=== PATIENT | female | born 1935 | race Caucasian/White ===

== ENCOUNTER 2017-09-22 18:40 | Emergency (ER) | payer MEDICARE, OTHER ==
[~2017-09-22 18:40] MED LIST changes: -ALEN70TA43 PO; -HYDR-4309 PO; -ONDA4TAB PO
--- NOTE | 2017-09-22 18:48 | ER Report ---
History and Physical Time Seen By MD: 18:44 HPI/ROS CHIEF COMPLAINT: Fall, left arm pain HISTORY OF PRESENT ILLNESS: 82-year-old female brought in by EMS. While she was celebrating her birthday. She tripped and fell onto her left arm. She's complaining of severe pain. Midhumerus. She is status post shoulder replacement on the left side. The left upper extremity was placed in a prescription sling by EMS after she received fentanyl 250 g IV. He also has an abrasion to her left fore head. She denies neck pain, or LOC. Her mentation is normal. She denies nausea or vomiting. Patient denies chest pain or shortness of breath. Patient denies syncope. REVIEW OF SYSTEMS: Respiratory: No cough, no dyspnea. Cardiovascular: No chest pain, no palpitations. Gastrointestinal: No vomiting, no abdominal pain. Musculoskeletal: No back pain. Allergies: Coded Allergies: tetracycline (Verified Allergy, Severe, SWELLING OF TONGUE, 09/22/17) Home Meds Active Scripts Ondansetron (ZOFRAN ODT) 4 Mg Tab.rapdis, 4 MG PO every 6 hours, #12 TAB TAKE 1 TABLET BY MOUTH EVERY 12 HOURS Prov:EVE CRUZ Tr DO 09/22/17 Ondansetron (ZOFRAN ODT) 4 Mg Tab.rapdis, 4 MG PO every 6 hours Y for NAUSEA/ VOMITING, #10 TAB TAKE 1 TABLET BY MOUTH EVERY 12 HOURS Prov:EVE CRUZ Tr DO 09/22/17 Hydrocodone Bit/Acetaminophen (NORCO 5-325 TABLET) 1 Each Tablet, 1-2 EACH PO Q4H Y for PAIN, #20 TAB Prov:EVE CRUZ Tr DO 09/22/17 Reported Medications Alendronate Sodium (FOSAMAX) 70 Mg Tablet, 35 MG PO QWK, TAB 09/22/17 Calcium Citrate/Vitamin D3 (CALCIUM CITRATE - VIT D CAPLET) 1 Each Tablet, 1 EACH PO DAILY 11/10/15 Multivitamin (DAILY VITAMIN FORMULA) 1 Each Tablet, 1 EACH PO DAILY 11/10/15 Lactobacillus Combination No.4 (PROBIOTIC) 1 Each Capsule, 1 EACH PO DAILY, CAPSULE 11/10/15 Esomeprazole Magnesium (NEXIUM) 20 Mg Capsule.dr, 1 CAP PO QDAY, CAP 11/10/15 Cyclosporine (RESTASIS) 1 Each Droperette, 1 EACH OP DAILY 11/10/15 Glycopyrrolate (ROBINUL) 1 Mg Tablet, 0.5 MG PO HS 11/10/15 Pot Chloride/Shlomo Phos/Mag (MEDI-LYTE TABLET) 1 Each Tablet, 1 EACH PO DAILY 11/10/15 Furosemide (FUROSEMIDE) 20 Mg Tablet, 1 TAB PO DAILY, TAB 11/10/15 Fluticasone/Salmeterol (ADVAIR HFA 45-21 MCG INHALER) 12 Gm Hfa.aer.ad, 12 GM IH BID 11/10/15 Albuterol/Ipratropium (Combivent) 14.7 Gm Inh, 0 INH PRN, 0 Refills 1-2 PUFFS 02/17/10 Discontinued Scripts Hydrocodone Bit/Acetaminophen (HYDROCODON-ACETAMINOPHEN 5-325) 1 Each Tablet, 1 EACH PO Q4-6H for PAIN, #12 TAB TAKE ONE TABLET BY MOUTH EVERY 4-6 HOURS NEEDED FOR PAIN Prov:BEBETO AMADOR MD 11/10/15 Past Medical/Surgical History Past medical history: Osteoporosis, GERD, dry eye syndrome, COPD/asthma Reviewed Nurses Notes: Yes Old Medical Records Reviewed: Yes Hx Smoking: No Smoking Status: Former Smoker Exposure to Second Hand Smoke?: No Hx Substance Use Disorder: No Hx Alcohol Use: No Constitutional Vital Sign - Last 24 Hours 09/22/17 09/22/17 09/22/17 09/22/17 18:40 18:46 18:51 19:00 Temp 98.1 Pulse ??? 81 Resp 19 B/P (MAP) 158/84 158/84 (108) 173/76 (108) Pulse Ox 94 O2 Delivery Room Air 09/22/17 09/22/17 09/22/17 09/22/17 19:10 19:30 19:40 19:46 Pulse 85 85 Resp 20 12 B/P (MAP) 177/83 (114) O2 Flow Rate 1.0 09/22/17 09/22/17 09/22/17 09/22/17 20:00 20:10 20:10 20:30 Pulse 82 82 Resp 15 15 B/P (MAP) 166/73 (104) 168/84 (112) Pulse Ox 90 90 09/22/17 09/22/17 09/22/17 20:40 21:10 21:30 Pulse 83 92 Resp 9 B/P (MAP) 178/96 (123) 167/77 (107) Pulse Ox 95 89 Physical Exam General Appearance: The patient is alert, has no immediate need for airway protection and no current signs of toxicity. Palpation of the head and neck reveals no tenderness or trauma except there is an abrasion to the left fore head. Patient bones are intact on palpation, aggressive palpation of the cervical spine reveals no tenderness HEENT: Pupils equal and round no injection. TMs normal, facial bones intact on palpation, oropharynx without dental trauma Respiratory: Chest is non tender, lungs are clear to auscultation. No chest wall tenderness Cardiac: regular rate and rhythm Gastrointestinal: Abdomen is soft and non tender, no masses, bowel sounds normal. Musculoskeletal: Neck: Neck is supple and non tender. Extremities have full range of motion and are non tender. The right lower extremity shows a large skin tear held closed by Steri-Strips. There is a dressing over it. There is some surrounding erythema but it does not appear grossly infected. It is 4 weeks out. Per patient history. Skin: No rashes or lesions. DIFFERENTIAL DIAGNOSIS: After history and physical exam differential diagnosis was considered for sprain, strain, fracture, dislocation, contusion. Medical Decision Making EKG/Imaging Imaging X-ray: Two-view left humerus was obtained and angulation. I viewed the images myself on the PACS system. My interpretation of the images is: There is a midshaft nondisplaced.. The radiologist interpretation had no clinically significant variation from this interpretation. ED Course/Re-evaluation Clinical Indication for ER IV: IV Access ED Course Patient was admitted to an examination room by EMS. H&P was done. The differential diagnoses was considered. Patient with a trip and fall. She denies syncope. On clinical examination. She has significant pain in her left humerus. She likely has sustained a fracture with a deformity. EMS and to administer significant fentanyl in the scene to get relief and put her in a sling. Diagnostic x-rays show obvious midshaft fracture, just distal to the shoulder, prosthetic device. Patient's abrasion to her left forehead was cleaned and dressed and antibiotic ointment. I spoke with the family and patient at length. They're requesting admission for pain control. I advised them that insurance will likely cover the admission. They may be left with a large bill. Patient was given Toradol 30 mg in addition to the fentanyl she received earlier. She was also given 2 g of morphine for extended pain relief. Patient will be discharged home on Percocet and Zofran. Patient advised to contact orthopedist in [place] to get her shoulder surgery on Sunday for urgent follow-up. Decision to Disposition Date: September 22, 2017 Decision to Disposition Time: 20:10 Depart Departure Latest Vital Signs Vital Signs Date Time Temp Pulse Resp B/P (MAP) Pulse Ox O2 Delivery O2 Flow Rate FiO2 09/22/17 21:30 167/77 (107) 09/22/17 21:10 92 89 09/22/17 20:40 9 09/22/17 19:46 1.0 09/22/17 18:46 98.1 Room Air Impression: Primary Impression: Fall with injury Additional Impressions: Status post replacement of left shoulder joint Closed left humeral fracture Forehead abrasion Condition: Improved Disposition: HOME OR SELF-CARE Referrals: AGUSTINA ESPINOSA MD (PCP) NADIR FERREIRA MD New Scripts Ondansetron (ZOFRAN ODT) 4 Mg Tab.rapdis 4 MG PO every 6 hours, #12 TAB TAKE 1 TABLET BY MOUTH EVERY 12 HOURS Prov: EVE CRUZ DO 09/22/17 Ondansetron (ZOFRAN ODT) 4 Mg Tab.rapdis 4 MG PO every 6 hours Y for NAUSEA/VOMITING, #10 TAB TAKE 1 TABLET BY MOUTH EVERY 12 HOURS Prov: EVE CRUZ DO 09/22/17 Hydrocodone Bit/Acetaminophen (NORCO 5-325 TABLET) 1 Each Tablet 1-2 EACH PO Q4H Y for PAIN, #20 TAB Prov: EVE CRUZ DO 09/22/17 Patient Instructions: Arm Fracture in Adults (ED) Additional Instructions: Take ibuprofen 2 tablets 3 times a day with food Apply ice to your left upper arm Continue to wear the sling for support monitor the left hand for swelling Follow-up with your orthopedic doctor in 2-4 days or you can go to Dr. Ferreira here in [place] Problem Qualifiers Primary Impression: Fall with injury Encounter type: initial encounter Qualified Codes: W19.XXXA - Unspecified fall, initial encounter Additional Impressions: Closed left humeral fracture Encounter type: initial encounter Humerus Location: shaft Fracture morphology: unspecified fracture morphology Qualified Codes: S42.302A - Unspecified fracture of shaft of humerus, left arm, initial encounter for closed fracture Forehead abrasion Encounter type: initial encounter Qualified Codes: S00.81XA - Abrasion of other part of head, initial encounter EVE CRUZ DO September 22, 2017 18:48
[2017-09-22] MEDS ORDERED: ALEN70TA43 PO (19:48)
--- NOTE | 2017-09-22 20:07 | RADIOLOGY IMAGING REPORT ---
FACILITY: [facility] [place] PATIENT NAME: Rhonda Coker : 1935 MR: [id number] V: [id number] EXAM DATE: ORDERING PHYSICIAN: EVE CRUZ TECHNOLOGIST: Location: [facility] Patient: Rhonda Coker : 1935 Visit/Account:[id number] Date of Sevice: 09/22/2017 INDICATION: Fall, left upper extremity pain. EXAM DATE: 09/22/2017 6:52 PM COMPARISON: None. FINDINGS: 3 images left humerus. Mineralization appears low. The patient has a reverse left shoulder prosthesi s. There is an obliquely oriented fracture adjacent to the distal aspect of the intramedullary compo nent in the humeral diaphysis. The distal fragment is proximally and posterior displaced, with the p osterior displacement equating to approximately one shaft width. Increased distance between the acro mion and lateral aspect of the clavicles of uncertain chronicity. There also is likely a remote frac ture at the greater tuberosity. IMPRESSION: Displaced left humeral diaphysis fracture in the setting of previous left shoulder arthr oplasty. Report Dictated By: Phillip Clark MD at 09/22/2017 8:00 PM Report E-Signed By: Phillip Clark MD at 09/22/2017 8:04 PM WSN:[id number]
[2017-09-22] MEDS ORDERED: KETOROLAC 30 MG/ML VIAL IVP ONE (20:10)
[2017-09-22] MEDS ORDERED: ACET/HYDROC 5/325MG TH ER ONLY 2 TAB/BOTTLE PO ONE ×2 (20:10)
[2017-09-22] MEDS ORDERED: ONDANSETRON 4 MG ODT TH SL ONE (20:10)
[2017-09-22] MEDS ORDERED: ONDA4TAB PO (20:12)
[2017-09-22] MEDS ORDERED: HYDR-4309 PO (20:12)
[2017-09-22] MEDS ORDERED: MORPHINE 2 MG/ML SYR IVP ONE (21:15)
[2017-09-22 21:30] VITALS: BP 167/77
[2017-09-22] MEDS ORDERED: EMS NS 0.9%(*) 1000 ML BAG 1,000 ML IV ONE (22:10)
== END 2017-09-22 21:28 | disposition home or self-care (01) ==
LOC: ER 18:46
DX: S42.392A Other fracture of shaft of left humerus, initial encounter for closed fracture (principal); S00.81XA Abrasion of other part of head, initial encounter; W01.0XXA Fall on same level from slipping, tripping and stumbling without subsequent striking against object, initial encounter
CPT/HCPCS: 73060; 96361; 96374; 96375; 99284; J1885; J2270; Q0162; S0119

== ENCOUNTER → 2017-09-22 | Outpatient (CLI) | payer MEDICARE, OTHER ==
[~2017-09-22] MED LIST: ADVAIR INH; ALBU8.5H IH; ALEN70TA43 PO; CALC-901 PO; CITRICAL PO; COM14R INH; CYCL-343 PO; CYCL1DRO6 OP; ESOM20CA31 PO; FLUT12HF IH; FURO-45 PO; GLYC1TAB21 PO; HYDR-385 PO; HYDR-4309 PO; LACT1CAP6 PO; LASIX PO; LEVO750T44 PO; LOR5/325 PO; MULT-1124 PO; NAPR220C12 PO; NEXIUM; ONDA4TAB PO; OXYGEN; POT1TABL PO; POTASSIUM; PRED20TA6 PO; TRAM-420 PO; [UNRECOGNIZED DRUG - CODE] PO
== END ==
LOC: AMB 17:59
PROVIDERS: ATTEND Nurse Practitioner
DX: M25.512 Pain in left shoulder (principal); W01.0XXA Fall on same level from slipping, tripping and stumbling without subsequent striking against object, initial encounter; Y92.008 Other place in unspecified non-institutional (private) residence as the place of occurrence of the external cause
CPT/HCPCS: A0425; A0427

== ENCOUNTER → 2018-09-19 | Outpatient (CLI) | payer MEDICARE, OTHER ==
[~2018-09-19] MED LIST changes: +ALEN70TA43 PO; +HYDR-653 PO; +IOPAMIDOL 76% 100 ML INFUS BTL 100 ML ONE; +NS(*) 0.9% 50 ML BAG 50 ML ONE; +ONDA4TAB PO
--- NOTE | 2018-09-19 17:00 | RADIOLOGY IMAGING REPORT ---
FACILITY: [facility] PATIENT NAME: Rhonda Coker : 1935 MR: [id number] V: [id number] EXAM DATE: ORDERING PHYSICIAN: AGUSTINA ESPINOSA TECHNOLOGIST: Location: [facility] Patient: Rhonda Coker : 1935 Visit/Account:[id number] Date of Sevice: 09/19/2018 CTA chest with contrast, PE protocol EXAMINATION: CTA of the chest with IV contrast History : Leg swelling, thrombophlebitis, shortness of breath TECHNIQUE: Pulmonary embolus protocol - Thin-slice axial imaging of the chest was performed during maximal pulmonary arterial opacification with intravenous nonionic iodinated contrast. 3D coronal sla b MIPs and 2D reconstructions in the coronal and sagittal planes were performed to aid in pulmonary e mbolus detection. [employer] images have been stored on PACS. One of the following dose optimization techniques was utilized in the performance of this exam: Autom ated exposure control; adjustment of the mA and/or kV according to the patient's size; or use of an i terative reconstruction technique. Specific details can be referenced in the facility's radiology C T exam operational policy. Contrast: 75 cc of Isovue-370 COMPARISON STUDIES: none. FINDINGS: Please note that this exam is optimized for assessment of the pulmonary arteries and is not intended as a diagnostic study of the thoracic aorta, coronary arteries or venous structures. Angiographic Findings: Pulmonary arteries: There are no filling defects in the main, right, left, lobar, segmental or visual ized sub-segmental branches of the pulmonary arterial system Other vasculature: Calcification of the aortic valve and thoracic aorta is noted Additional non-angiographic findings: Lungs / Pleura: Atelectasis is noted at the lung bases. Some scattered pulmonary micronodules are n oted. 2 mm right upper lobe nodules noted image 40 3 mm left for lobe nodule is noted image 54 5 mm left lower lobe nodule image 57 2 mm right lower lobe nodule image 61 2 mm right lower lobe nodule image 62 . Mediastinum / Nicole: negative. Heart / Pericardium: Calcification of the aortic and mitral valves is noted. Lymph node assessment: negative Musculoskeletal / Body wall: Degenerative changes are noted with osteopenia. Patient has a left hum eral arthroplasty Upper abdomen: Postoperative changes are noted from hiatal hernia repair. Some fluid in the esophag us suggests reflux. IMPRESSION: 1. No evidence for pulmonary emboli to the subsegmental level. 2. Scattered pulmonary micronodules measuring 5 mm or less. Prior CTs are unavailable for comparison. Recommendations for follow-up are provided below. [employer] SOC[employer]ET[employer] FOLLOW-UP GUIDELINES FOR NEWLY DETECTED INCIDENTAL NODULES IN PERSONS 35 YEARS OF AGE OR OLDER. *These recommendations do NOT apply to lung cancer screening, patients with immunosuppression or chris ents with a known primary malignancy. MULTIPLE SOLID NODULES If nodule size is < 6 mm: * Low risk patient ? No routine follow-up. * High risk patient ? Optional CT at 12 months. LOW RISK PATIENT: Minimal or absent history of tobacco use and of other known risk factors. HIGH RISK PATIENT: Tobacco use, family history of lung cancer, upper pulmonary lobe location of nodul e, presence of emphysema, pulmonary fibrosis, older age. Harpal H, River DP, Sherron MELARA, et al. Guidelines for Management of Incidental Pulmonary Nodules Dete cted on CT Images: From the Fleischner Society 2017. Radiology. [facility] Report Dictated By: Femi Ibarra MD at 09/19/2018 4:45 PM Report E-Signed By: Femi Ibarra MD at 09/19/2018 4:55 PM WSN:[id number]
== END ==
LOC: CT 15:00
PROVIDERS: ATTEND Family Medicine
DX: R06.02 Shortness of breath (principal); I80.291 Phlebitis and thrombophlebitis of other deep vessels of right lower extremity; M79.89 Other specified soft tissue disorders
CPT/HCPCS: 71275; J7050; Q9967